=== PATIENT | female | born 2000 | race Hispanic/Latino ===

== ENCOUNTER 2020-12-05 10:27 | Emergency (ER) | payer SELFPAY ==
[2020-12-05] MEDS ORDERED: ONDANSETRON 4 MG/2 ML VIAL ONE (13:52)
[2020-12-05] MEDS ORDERED: NA CHLORIDE 0.9% 1,000 ML ONE (13:52)
[2020-12-05] MEDS ORDERED: FAMOTIDINE 20 MG/2 ML VIAL IV ONE (13:53)
[2020-12-05] MEDS ORDERED: KETOROLAC 30 MG/ML INJ ONE (13:56)
[2020-12-05 13:57] LABS: Urine Specific Gravity 1.025 (1.005-1.030)
[2020-12-05 13:58] LABS: Urine Blood NEGATIVE (NEG); Urine Glucose NEGATIVE (NEG); Urine Protein NEGATIVE (NEG); Urine Specific Gravity 1.025 (1.005-1.030); Urine pH 7.5 (5.0-7.0)
[2020-12-05 14:02] LABS: Absolute Lymphocytes (CBC) 2.2 K/uL (0.7-4.9); Basophils % 0.5 % (0-1.3); Hematocrit 40.3 % (36.0-45.0); Lymphocytes % 24.8 % (15.3-44.8); RBC Red Blood Cell Count 4.55 M/uL (3.86-4.86)
[2020-12-05 14:18] LABS: ALT/SGPT 22 U/L (12-78); AST/SGOT 16 U/L (15-37); Albumin 3.9 g/dL (3.4-5.0); Alkaline Phosphatase 70 U/L (45-117); BUN Blood Urea Nitrogen 6 mg/dL (7-18); Bicarbonate 26 mmol/L (21-32); Bilirubin Direct < 0.1 mg/dL (0-0.2); Bilirubin Total 0.3 mg/dL (0.2-1.0); Glucose Level 76 mg/dL (74-106); Lipase 75 U/L (73-393); Potassium 3.6 mmol/L (3.5-5.1); Protein, Total 8.1 g/dL (6.4-8.2); Sodium Level 138 mmol/L (136-145)
--- NOTE | 2020-12-05 15:50 | RAD REPORT ---
EXAM DESCRIPTION: CT - Abdomen Pelvis W Contrast - 12/05/2020 3:20 pm CLINICAL HISTORY: ABD PAIN COMPARISON: No comparisons TECHNIQUE: Biphasic, helical CT imaging of the abdomen and pelvis was performed following 100 ml non -ionic IV contrast. No oral contrast. All CT scans are performed using dose optimization technique as appropriate and may include automated exposure control or mA/KV adjustment according to patient size. FINDINGS: No suspicious findings in the lung bases. The liver, spleen, and pancreas show no suspicious findings. Gallbladder and biliary tree are also wi thout suspicious finding. Symmetric renal function is seen with no hydronephrosis or suspicious renal mass. No pyelonephritis o r acute parenchymal process. No bladder abnormalities. No adrenal abnormalities. Uterus and left ovar y show no suspicious findings. Right ovary contains an 18 millimeter involuting cyst. No dilated bowel loops or bowel wall thickening. Appendix is normal. No free air, free fluid or infla mmatory stranding. No hernia, mass or bulky lymphadenopathy. No suspicious bony findings. IMPRESSION: Contrast enhanced CT abdomen and pelvis showing no acute or emergent finding.
--- NOTE | 2020-12-05 17:14 | ER ---
Nurse's Notes [facility] Name: Ahsan Fitch Age: 20 yrs Sex: Female : 2000 Arrival Date: 12/05/2020 Time: 10:32 Bed 2 Private MD: Diagnosis: Diarrhea, unspecified Presentation: 12/05 11:09 Chief complaint: Patient states: for about 1-2 weeks has vomiting and stomach pains and iw is also having a lot of diarrhea and now there is blood in it , dark red, noticed it this morning. Coronavirus screen: diarrhea, vomiting. Client presents with at least one sign or symptom that may indicate coronavirus-19. Standard/surgical mask placed on the client. Provider contacted for isolation considerations. Ebola Screen: Patient negative for fever greater than or equal to 101.5 degrees Fahrenheit, and additional compatible Ebola Virus Disease symptoms Patient denies exposure to infectious person. Patient denies travel to an Ebola-affected area in the 21 days before illness onset. No symptoms or risks identified at this time. Initial Sepsis Screen: Does the patient meet any 2 criteria? No. Patient's initial sepsis screen is negative. Does the patient have a suspected source of infection? No. Patient's initial sepsis screen is negative. Risk Assessment: Do you want to hurt yourself or someone else? Patient reports no desire to harm self or others. Onset of symptoms was November 22, 2020. 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 - Social history:: Smoking status: Patient denies any tobacco usage or history of. - Family history:: not pertinent. Screenin:00 Abuse screen: Denies threats or abuse. Denies injuries from another. Nutritional jl7 screening: No deficits noted. Tuberculosis screening: No symptoms or risk factors identified. Fall Risk IV access (20 points). Total Pretty Fall Scale indicates No Risk (0-24 pts). Assessment: 13:00 General: Appears in no apparent distress. uncomfortable, Behavior is calm, cooperative, jl7 appropriate for age. Pain: Complains of pain in abdomen diffusely Pain does not radiate. Pain currently is 8 out of 10 on a pain scale. Quality of pain is described as burning, aching, Pain began 1.5 weeks ago Is continuous. Pain: Complains of pain in left mid back and right mid back Pain does not radiate. Pain currently is 8.5 out of 10 on a pain scale. Quality of pain is described as aching, Pain began 2.5 weeks ago Is continuous. Neuro: Level of Consciousness is awake, alert, obeys commands, Oriented to person, place, time, situation. Cardiovascular: Patient's skin is warm and dry. Respiratory: Airway is patent Respiratory effort is even, unlabored, Respiratory pattern is regular, symmetrical. GI: Abdomen is round non-distended, Abd is soft Abdomen is tender to palpation in right upper quadrant, left upper quadrant, right lower quadrant and left lower quadrant Reports diarrhea, bloody stool, nausea, vomiting. : Denies burning with urination. Derm: Skin is pink, warm \T\ dry. 16:48 Reassessment: ERD at bedside discussing results and POC. jl7 17:41 Reassessment: PT D/C HOME AMBULATORY, DX WITH DIARRHEA. GI: Bowel sounds present X 4 bp quads. Vital Signs: 11:09 BP 113 / 83; Pulse 90; Resp 16; Temp 98.5; Pulse Ox 100% on R/A; Weight 68.04 kg; iw Height 5 ft. (152.40 cm); Pain 8/10; 13:10 BP 136 / 98; Pulse 71; Resp 15; Pulse Ox 100% ; jl7 13:55 BP 114 / 67; Pulse 76; Resp 15; Pulse Ox 100% ; Pain 8/10; jl7 16:16 BP 92 / ???; Pulse 67; Resp 16; Temp 98.0(O); Pulse Ox 98% ; 5 17:41 BP 99 / 70; Pulse 66; Resp 16; Temp 98; Pulse Ox 98% ; bp 11:09 Body Mass Index 29.29 (68.04 kg, 152.40 cm) iw ED Course: 10:32 Patient arrived in ED. as 11:11 Triage completed. iw 11:11 Arm band placed on. iw 12:57 Moshe Andrews MD is Attending Physician. ma2 12:59 Curtis Joy, RN is Primary Nurse. [facility] 13:10 Patient has correct armband on for positive identification. Bed in low position. Call 5 light in reach. Warm blanket given. Pulse ox on. NIBP on. 13:10 Urine collected: clean catch specimen, clear. [facility] 13:50 Initial lab(s) drawn, by nv, sent to lab. Inserted saline lock: 20 gauge in left jl7 antecubital area, using aseptic technique. Blood collected. 15:20 CT Abd/Pelvis - IV Contrast Only In Process Unspecified. EDMS 17:42 No provider procedures requiring assistance completed. IV discontinued, intact, bp bleeding controlled, No redness/swelling at site. Pressure dressing applied. Administered Medications: 13:43 Drug: Zofran (Ondansetron) 4 mg Route: IVP; Site: left antecubital; 7 17:43 Follow up: Response: No adverse reaction bp 13:45 Drug: NS 0.9% 1000 ml Route: IV; Rate: 1 bolus; Site: left antecubital; [facility] 17:42 Follow up: IV Status: Completed infusion; IV Intake: 1000ml bp 13:45 Drug: Ketorolac 30 mg Route: IVP; Site: left antecubital; jl7 17:43 Follow up: Response: Pain is decreased bp 13:47 Drug: Pepcid 20 mg Route: IVP; Site: left antecubital; 7 17:42 Follow up: Response: No adverse reaction bp Intake: 17:42 IV: 1000ml; Total: 1000ml. bp Outcome: 17:13 Discharge ordered by . ma2 17:42 Discharged to home ambulatory. bp 17:42 Condition: stable 17:42 Discharge instructions given to patient, Instructed on discharge instructions, follow up and referral plans. medication usage, Demonstrated understanding of instructions, follow-up care, medications, Prescriptions given X 4. 17:43 Patient left the ED. bp Signatures: Dispatcher [employer] EDGeovanna Echols Irene, RN RN Nicole Gaines [facility] Curtis Joy RN RN [facility] Quinn Simon RN RN Alzahri, Mohammad, MD MD ma2
--- NOTE | 2020-12-05 17:14 | EDPHYS ---
Physician Documentation [facility] Name: Ahsan Fitch Age: 20 yrs Sex: Female : 2000 Arrival Date: 12/05/2020 Time: 10:32 Bed 2 Private MD: ED Physician Moshe Andrews HPI: 12/05 15:50 This 20 yrs old Female presents to ER via Ambulatory with complaints of ma2 Abdominal Pain, Bloody Stools, Nausea/Vomiting. 15:50 The patient presents to the emergency department with nausea, vomiting, diarrhea. ma2 Onset: The symptoms/episode began/occurred gradually, 2 week(s) ago. Associated signs and symptoms: Pertinent negatives: constipation, dysuria, fever, flatulence. Severity of symptoms: At their worst the symptoms were mild in the emergency department the symptoms are unchanged. The patient has not experienced similar symptoms in the past. 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 - Social history:: Smoking status: Patient denies any tobacco usage or history of. - Family history:: not pertinent. ROS: 15:50 Constitutional: Negative for fever, chills, and weight loss. ma2 15:50 All other systems are negative. Exam: 15:50 Constitutional: This is a well developed, well nourished patient who is awake, alert, ma2 and in no acute distress. Neck: Trachea midline, no thyromegaly or masses palpated, and no cervical lymphadenopathy. Supple, full range of motion without nuchal rigidity, or vertebral point tenderness. No Meningismus. Chest/axilla: Normal chest wall appearance and motion. Nontender with no deformity. No lesions are appreciated. Cardiovascular: Regular rate and rhythm with a normal S1 and S2. No gallops, murmurs, or rubs. Normal PMI, no JVD. No pulse deficits. Respiratory: Lungs have equal breath sounds bilaterally, clear to auscultation and percussion. No rales, rhonchi or wheezes noted. No increased work of breathing, no retractions or nasal flaring. Abdomen/GI: Soft, non-tender, with normal bowel sounds. No distension or tympany. No guarding or rebound. No evidence of tenderness throughout. Skin: Warm, dry with normal turgor. Normal color with no rashes, no lesions, and no evidence of cellulitis. MS/ Extremity: Pulses equal, no cyanosis. Neurovascular intact. Full, normal range of motion. Vital Signs: 11:09 BP 113 / 83; Pulse 90; Resp 16; Temp 98.5; Pulse Ox 100% on R/A; Weight 68.04 kg; iw Height 5 ft. (152.40 cm); Pain 8/10; 13:10 BP 136 / 98; Pulse 71; Resp 15; Pulse Ox 100% ; jl7 13:55 BP 114 / 67; Pulse 76; Resp 15; Pulse Ox 100% ; Pain 8/10; jl7 16:16 BP 92 / ???; Pulse 67; Resp 16; Temp 98.0(O); Pulse Ox 98% ; mh5 17:41 BP 99 / 70; Pulse 66; Resp 16; Temp 98; Pulse Ox 98% ; bp 11:09 Body Mass Index 29.29 (68.04 kg, 152.40 cm) iw MDM: 12:57 Patient medically screened. ma2 15:50 Differential diagnosis: pancreatitis, appendicitis, diverticulitis, viral ma2 gastroenteritis, gastroenteritis. 17:13 Data reviewed: vital signs, nurses notes. Counseling: I had a detailed discussion with ma2 the patient and/or guardian regarding: the historical points, exam findings, and any diagnostic results supporting the discharge/admit diagnosis, the presence of at least one elevated blood pressure reading (>120/80) during this emergency department visit, the need for outpatient follow up. Response to treatment: the patient's symptoms have markedly improved after treatment. 12/05 13:05 Order name: Urine Dipstick--Ancillary (enter results); Complete Time: 14:43 12/05 13:07 Order name: Urine --Ancillary (enter results) 12/05 13:30 Order name: Basic Metabolic Panel [facility] 12/05 13:30 Order name: CBC with Diff ok2 12/05 13:30 Order name: Hepatic Function ok2 12/05 13:30 Order name: Lipase ok2 12/05 13:31 Order name: Basic Metabolic Panel; Complete Time: 14:43 EDMS 12/05 13:31 Order name: CBC with Automated Diff; Complete Time: 14:43 EDMS 12/05 13:31 Order name: Liver (Hepatic) Function; Complete Time: 14:43 EDMS 12/05 13:31 Order name: Lipase; Complete Time: 14:43 EDMS 12/05 14:44 Order name: CT Abd/Pelvis - IV Contrast Only; Complete Time: 16:41 ok2 12/05 13:30 Order name: IV Saline Lock; Complete Time: 13:59 ma2 12/05 13:30 Order name: Labs collected and sent; Complete Time: 13:59 ma2 12/05 13:30 Order name: Urine Dipstick-Ancillary (obtain specimen); Complete Time: 13:59 ma2 Administered Medications: 13:43 Drug: Zofran (Ondansetron) 4 mg Route: IVP; Site: left antecubital; jl7 17:43 Follow up: Response: No adverse reaction bp 13:45 Drug: NS 0.9% 1000 ml Route: IV; Rate: 1 bolus; Site: left antecubital; jl7 17:42 Follow up: IV Status: Completed infusion; IV Intake: 1000ml bp 13:45 Drug: Ketorolac 30 mg Route: IVP; Site: left antecubital; jl7 17:43 Follow up: Response: Pain is decreased bp 13:47 Drug: Pepcid 20 mg Route: IVP; Site: left antecubital; jl7 17:42 Follow up: Response: No adverse reaction bp Disposition: 12/05/20 17:13 Discharged to Home. Impression: Diarrhea, unspecified. - Condition is Stable. - Discharge Instructions: Diarrhea, Adult. - Prescriptions for Zofran 4 mg Oral Tablet - take 1 tablet by ORAL route every 12 hours As needed; 20 tablet. Pepcid 20 mg Oral Tablet - take 1 tablet by ORAL route once daily for 10 days; 10 tablet. Levaquin 500 mg Oral Tablet - take 1 tablet by ORAL route once daily for 7 days; 7 tablet. Diclofenac Sodium 75 mg Oral Tablet Sustained Release - take 1 tablet by ORAL route 2 times per day; 30 tablet. - Medication Reconciliation Form, Thank You Letter, Antibiotic Education, Prescription Opioid Use form. - Follow up: Private Physician; When: Tomorrow; Reason: Continuance of care. Signatures: Dispatcher [employer] Jossy Rivers RN RN Curtis Cox RN RN jl7 Quinn Simon RN RN bp Alzahri, Mohammad, MD MD ma2 Corrections: (The following items were deleted from the chart) 17:43 17:13 12/05/2020 17:13 Discharged to Home. Impression: Diarrhea, unspecified. Condition bp is Stable. Prescriptions for Zofran 4 mg Oral Tablet - take 1 tablet by ORAL route every 12 hours As needed; 20 tablet, Pepcid 20 mg Oral Tablet - take 1 tablet by ORAL route once daily for 10 days; 10 tablet. and Forms are Medication Reconciliation Form, Thank You Letter, Antibiotic Education, Prescription Opioid Use. Follow up: Private Physician; When: Tomorrow; Reason: Continuance of care. ma2
[2020-12-05 18:18] VITALS: O2SAT 98
[2020-12-05 18:19] VITALS: BP 99/70; TEMP 98
== END 2020-12-05 17:43 | disposition home or self-care (01) ==
LOC: ER 10:27
DX: K92.1 Melena (principal); R19.7 Diarrhea, unspecified; R10.9 Unspecified abdominal pain; R11.2 Nausea with vomiting, unspecified
CPT/HCPCS: 36415; 74177; 80048; 80076; 81003; 81025; 83690; 85025; 96361; 96374; 96375; 99284; J2405; J7030; Q9967

== ENCOUNTER 2021-09-06 18:51 | Emergency (ER) | payer SELFPAY ==
--- NOTE | 2021-09-06 20:10 | EDPHYS ---
Physician Documentation [facility] Name: Ahsan Fitch Age: 20 yrs Sex: Female : 2000 Arrival Date: 09/06/2021 Time: 18:52 Bed 11 Private MD: ED Physician Rad Jonas HPI: 09/06 19:35 This 20 yrs old Female presents to ER via Ambulatory with complaints of Rash. cp 19:35 The patient's rash thought to be caused by an unknown cause. cp 19:35 The rash is located on the body diffusely. cp 19:35 The rash can be described as erythematous. Onset: The symptoms/episode began/occurred cp last week. Associated signs and symptoms: Pertinent positives: itching, Pertinent negatives: difficulty breathing, fever, swelling of lips, swelling of throat, swelling of tongue. Severity of symptoms: in the emergency department the symptoms are worse. 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 - Social history:: Smoking status: Patient denies any tobacco usage or history of. Patient/guardian denies using alcohol. ROS: 19:40 Skin: Positive for rash. cp 19:40 Constitutional: Negative for fever. cp 19:40 Respiratory: Negative for cough, shortness of breath. 19:40 All other systems are negative. Exam: 19:45 Constitutional: The patient appears in no acute distress, alert, awake, non-toxic, well cp developed, well nourished. 19:45 Head/Face: Normocephalic, atraumatic. cp 19:45 Cardiovascular: Rate: normal. 19:45 Respiratory: the patient does not display signs of respiratory distress, Respirations: normal, no use of accessory muscles, no retractions. 19:45 Skin: cellulitis, is not appreciated, rash can be described as erythematous, excoriated, areas of superficial erosion of skin, and is diffusely located. Vital Signs: 18:57 BP 109 / 88; Pulse 77; Resp 18; Temp 97.5(TE); Pulse Ox 100% on R/A; Weight 63.5 kg; ld1 Height 5 ft. 0 in. (152.40 cm); Pain 0/10; 18:57 Body Mass Index 27.34 (63.50 kg, 152.40 cm) ld1 MDM: 19:31 Patient medically screened. cp 20:10 Data reviewed: vital signs, nurses notes, and as a result, I will discharge patient. cp 20:10 Counseling: I had a detailed discussion with the patient and/or guardian regarding: the cp historical points, exam findings, and any diagnostic results supporting the discharge/admit diagnosis, to return to the emergency department if symptoms worsen or persist or if there are any questions or concerns that arise at home. ED course: Patient denies and drainage from rash, denies pain, denies initial appearance of rash appearing as vesicles and/or pustules. Patient reports recently getting new pet dog. Will treat for tinea infection and recommend f/u if no resolution. Administered Medications: No medications were administered Disposition: 20:20 Chart complete. cp Disposition Summary: 09/06/21 20:10 Discharge Ordered Location: Home cp Problem: new cp Symptoms: have improved cp Condition: Stable cp Diagnosis - Tinea corporis cp Followup: cp - With: Private Physician - When: 1 week - Reason: rash continues Discharge Instructions: - Discharge Summary Sheet cp - Body Ringworm cp Forms: - Medication Reconciliation Form cp - Thank You Letter cp - Antibiotic Education cp - Prescription Opioid Use cp Prescriptions: - Clotrimazole 1 % Topical Cream - Apply to affected area 1 application by TOPICAL route every 12 hours for 8-10 cp days apply to areas of rash as directed twice daily; 60 gram; Refills: 0, Product Selection Permitted - Fluconazole 200 mg Oral Tablet - take 1 tablet by ORAL route every other day; 3 tablet; Refills: 0, Product cp Selection Permitted Addendum: 09/11/2021 08:24 Co-signature as Attending Physician, Rad Jonas MD I agree with the assessment and c tellez plan of care. Signatures: Rad Jonas MD MD cha Page, Corey PA PA cp Armida yBrnes RN RN ld1 Corrections: (The following items were deleted from the chart) 09/06 19:00 18:59 PMHx: Unable to Obtain; ld1 ld1 20:12 20:10 Sofiya kim cp cp
--- NOTE | 2021-09-06 20:10 | ER ---
Nurse's Notes [facility] Name: Ahsan Fitch Age: 20 yrs Sex: Female : 2000 Arrival Date: 09/06/2021 Time: 18:52 Bed 11 Private MD: Diagnosis: Tinea corporis Presentation: 09/06 18:57 Chief complaint: Patient states: I noticed a rash developing last Friday, it is itchy ld1 and all over my body. My son has now developed the rash as well. Coronavirus screen: At this time, the client does not indicate any symptoms associated with coronavirus-19. Ebola Screen: No symptoms or risks identified at this time. Initial Sepsis Screen: Does the patient meet any 2 criteria? No. Patient's initial sepsis screen is negative. Does the patient have a suspected source of infection? No. Patient's initial sepsis screen is negative. Risk Assessment: Do you want to hurt yourself or someone else? Patient reports no desire to harm self or others. Onset of symptoms was September 06, 2021. 18:57 Method Of Arrival: Ambulatory ld1 18:57 Acuity: CLAIR 4 ld1 Triage Assessment: 18:59 General: Appears in no apparent distress. comfortable, Behavior is calm, cooperative, ld1 appropriate for age. Pain: Denies pain. Neuro: Level of Consciousness is awake, alert, obeys commands, Oriented to person, place, time, situation, Appropriate for age. Cardiovascular: Capillary refill < 3 seconds Patient's skin is warm and dry. Respiratory: Airway is patent Respiratory effort is even, unlabored, Respiratory pattern is regular, symmetrical. GI: Abdomen is flat, non-distended. Derm: Rash noted that is itchy, on abdomen, right arm, left arm, right leg, left leg and neck. 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 - Social history:: Smoking status: Patient denies any tobacco usage or history of. Patient/guardian denies using alcohol. Screenin:13 Abuse screen: Denies threats or abuse. Denies injuries from another. Nutritional mr2 screening: No deficits noted. Tuberculosis screening: No symptoms or risk factors identified. Fall Risk None identified. Assessment: 20:24 General: Appears in no apparent distress. comfortable. Pain: Denies pain. Derm: Reports mr2 itching, tingling, since last week. Vital Signs: 18:57 BP 109 / 88; Pulse 77; Resp 18; Temp 97.5(TE); Pulse Ox 100% on R/A; Weight 63.5 kg; ld1 Height 5 ft. 0 in. (152.40 cm); Pain 0/10; 18:57 Body Mass Index 27.34 (63.50 kg, 152.40 cm) ld1 ED Course: 18:52 Patient arrived in ED. am2 18:59 Triage completed. ld1 18:59 Arm band placed on left wrist. ld1 19:29 Rad Youngblood PA is PHCP. cp 19:29 Rad Jonas MD is Attending Physician. cp 20:12 Manpreet Umana, RN is Primary Nurse. mr2 20:13 Patient has correct armband on for positive identification. Bed in low position. Call mr2 light in reach. Side rails up X2. 20:13 No provider procedures requiring assistance completed. Patient did not have IV access mr2 during this emergency room visit. Administered Medications: No medications were administered Outcome: 20:10 Discharge ordered by . cp 20:13 Discharged to home ambulatory. mr2 20:13 Condition: stable 20:13 Discharge instructions given to patient. 20:25 Patient left the ED. mr2 Signatures: Rad Youngblood PA PA cp Moreno, Amanda am2 Armida Byrnes RN RN ld1 Manpreet Umana RN RN mr2 Corrections: (The following items were deleted from the chart) 19:00 18:59 PMHx: Unable to Obtain; ld1 ld1
[2021-09-06 20:31] VITALS: BP 109/88; TEMP 97.5; O2SAT 100
== END 2021-09-06 20:25 | disposition home or self-care (01) ==
LOC: ER 18:51
DX: B35.4 Tinea corporis (principal)
CPT/HCPCS: 99281

== ENCOUNTER 2021-09-30 13:56 | Emergency (ER) | payer SELFPAY ==
[2021-09-30 15:55] LABS: SARS-COV-2 RT PCR NEGATIVE (NEGATIVE)
--- NOTE | 2021-09-30 16:02 | EDPHYS ---
Physician Documentation [facility] Name: Ahsan Fitch Age: 20 yrs Sex: Female : 2000 Arrival Date: 09/30/2021 Time: 14:04 Bed Treatment Private MD: ED Physician Shanice Wagner HPI: 09/30 18:29 This 20 yrs old Female presents to ER via Ambulatory with complaints of Cough, kb Sore Throat, Chest Pain. 18:29 The patient or guardian reports cough, that is intermittent, described as mild. Onset: kb The symptoms/episode began/occurred last night. Severity of symptoms: At their worst the symptoms were moderate, in the emergency department the symptoms are unchanged. Modifying factors: The symptoms are alleviated by nothing, the symptoms are aggravated by nothing. Associated signs and symptoms: Pertinent positives: rhinorrhea, sore throat, Pertinent negatives: chest pain, diarrhea, ear ache, fever, nausea, vomiting. The patient has not experienced similar symptoms in the past. The patient has not recently seen a physician. 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 - Social history:: Smoking status: Reported history of juuling and/or vaping. Patient/guardian denies using alcohol. ROS: 18:28 Constitutional: Negative for fever, chills, and weight loss. kb 18:28 ENT: Positive for sinus congestion, sore throat. 18:28 Respiratory: Positive for cough, Negative for dyspnea on exertion, hemoptysis, orthopnea, pleurisy, shortness of breath, sputum production, wheezing. 18:28 All other systems are negative. Exam: 18:28 Constitutional: This is a well developed, well nourished patient who is awake, alert, kb and in no acute distress. Head/Face: Normocephalic, atraumatic. Cardiovascular: Regular rate and rhythm with a normal S1 and S2. No gallops, murmurs, or rubs. No pulse deficits. Respiratory: Respirations even and unlabored. No increased work of breathing, no retractions or nasal flaring. Skin: Warm, dry with normal turgor. Normal color. MS/ Extremity: Pulses equal, no cyanosis. Neurovascular intact. Full, normal range of motion. Neuro: Awake and alert, GCS 15, oriented to person, place, time, and situation. Moves all extremities. Normal gait. Psych: Awake, alert, with orientation to person, place and time. Behavior, mood, and affect are within normal limits. 18:28 ENT: Posterior pharynx: Airway: normal, no evidence of obstruction, Tonsils: bilaterally enlarged, Uvula: normal, midline, swelling, that is moderate. Vital Signs: 14:30 BP 129 / 80; Pulse 96; Resp 18; Temp 98.1(O); Pulse Ox 100% on R/A; Weight 68.04 kg; ld1 Height 5 ft. 0 in. (152.40 cm); Pain 0/10; 14:30 Body Mass Index 29.29 (68.04 kg, 152.40 cm) ld1 MDM: 15:53 Patient medically screened. kb 18:28 Data reviewed: vital signs, nurses notes. Data interpreted: Pulse oximetry: on room air kb is 100 %. Interpretation: normal. Counseling: I had a detailed discussion with the patient and/or guardian regarding: the historical points, exam findings, and any diagnostic results supporting the discharge/admit diagnosis, lab results, the need for outpatient follow up, a family practitioner, to return to the emergency department if symptoms worsen or persist or if there are any questions or concerns that arise at home. 09/30 14:34 Order name: Strep; Complete Time: 15:00 ld1 09/30 14:34 Order name: COVID-19/FLU A+B (Document "Date of Onset" if Symptomatic); Complete Time: ld1 15:59 09/30 14:53 Order name: Throat Culture EDMS Administered Medications: 16:44 Drug: Decadron (dexamethasone) 6 mg Route: PO; iw 17:00 Follow up: Response: No adverse reaction iw 16:44 Drug: GI Cocktail without - (Maalox Suspension 30 ml, Lidocaine Liquid 2 % 15 iw ml) Route: PO; 17:00 Follow up: Response: No adverse reaction iw Disposition: 10/01 09:25 Co-signature as Attending Physician, Shanice Wagner MD I agree with the assessment and sp3 plan of care. Disposition Summary: 09/30/21 16:01 Discharge Ordered Location: Home kb Condition: Stable kb Diagnosis - Acute tonsillitis, unspecified kb Followup: kb - With: Emergency Department - When: As needed - Reason: Worsening of condition Followup: kb - With: Private Physician - When: 2 - 3 days - Reason: Recheck today's complaints, Continuance of care, Re-evaluation by your physician Discharge Instructions: - Discharge Summary Sheet kb - Tonsillitis, [id number] kb Forms: - Medication Reconciliation Form kb - Thank You Letter kb - Antibiotic Education kb - Prescription Opioid Use kb - Work release form iw Prescriptions: - Amoxicillin 875 mg Oral Tablet - take 1 tablet by ORAL route every 12 hours for 10 days; 20 tablet; Refills: 0, kb Product Selection Permitted Signatures: Dispatcher [employer] EDAmanda Bundy, EDA NASCIMENTO-Jossy Orona RN RN Armida Byrnes RN RN ld1 Shanice Wagner MD MD sp3
--- NOTE | 2021-09-30 16:02 | ER ---
Nurse's Notes [facility] Name: Ahsan Fitch Age: 20 yrs Sex: Female : 2000 Arrival Date: 09/30/2021 Time: 14:04 Bed Treatment Private MD: Diagnosis: Acute tonsillitis, unspecified Presentation: 09/30 14:30 Chief complaint: Patient states: woke up this morning with cough, congestion and sore ld1 throat. Coronavirus screen: Client presents with at least one sign or symptom that may indicate coronavirus-19. Standard/surgical mask placed on the client. Ebola Screen: No symptoms or risks identified at this time. Initial Sepsis Screen: Does the patient meet any 2 criteria? No. Patient's initial sepsis screen is negative. Does the patient have a suspected source of infection? No. Patient's initial sepsis screen is negative. Risk Assessment: Do you want to hurt yourself or someone else? Patient reports no desire to harm self or others. Onset of symptoms was September 30, 2021. 14:30 Method Of Arrival: Ambulatory ld1 14:30 Method Of Arrival: Ambulatory ld1 14:30 Acuity: CLAIR 4 ld1 Triage Assessment: 14:32 General: Appears in no apparent distress. comfortable, Behavior is calm, cooperative, ld1 appropriate for age. Pain: Denies pain. EENT: Throat is pink Reports difficulty swallowing nasal congestion. Neuro: Level of Consciousness is awake, alert, obeys commands, Oriented to person, place, time, situation. Cardiovascular: Capillary refill < 3 seconds Patient's skin is warm and dry. Respiratory: Airway is patent Respiratory effort is even, unlabored, Respiratory pattern is regular, symmetrical. GI: Abdomen is flat, non-distended. : No signs and/or symptoms were reported regarding the genitourinary system. Derm: No signs and/or symptoms reported regarding the dermatologic system. Musculoskeletal: No signs and/or symptoms reported regarding the musculoskeletal system. 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 - Social history:: Smoking status: Reported history of juuling and/or vaping. Patient/guardian denies using alcohol. Vital Signs: 14:30 BP 129 / 80; Pulse 96; Resp 18; Temp 98.1(O); Pulse Ox 100% on R/A; Weight 68.04 kg; ld1 Height 5 ft. 0 in. (152.40 cm); Pain 0/10; 14:30 Body Mass Index 29.29 (68.04 kg, 152.40 cm) ld1 ED Course: 14:04 Patient arrived in ED. as 14:31 Triage completed. ld1 14:32 Arm band placed on right wrist. ld1 14:37 COVID-19/FLU A+B (Document "Date of Onset" if Symptomatic) Sent. ld1 14:37 Strep Sent. ld1 15:00 Amanda Crawford FNP-C is [facility]. kb 15:00 Shanice Wagner MD is Attending Physician. kb 16:28 Jossy Jackson, RN is Primary Nurse. iw Administered Medications: 16:44 Drug: Decadron (dexamethasone) 6 mg Route: PO; iw 17:00 Follow up: Response: No adverse reaction iw 16:44 Drug: GI Cocktail without - (Maalox Suspension 30 ml, Lidocaine Liquid 2 % 15 iw ml) Route: PO; 17:00 Follow up: Response: No adverse reaction iw Outcome: 16:01 Discharge ordered by . kb 16:46 Patient left the ED. iw Signatures: Amanda Crawford FNP-C FNP-Geovanna Rodas as Jossy Jackson, RN RN iw Armida Byrnes RN RN ld1
[2021-09-30] MEDS ORDERED: MAGNES/ALUMIN/SIMET 30ML UCUP ONE (16:37)
[2021-09-30] MEDS ORDERED: dexAMETHasone 4 MG/ML VIAL ONE (16:38)
[2021-09-30] MEDS ORDERED: LIDOCAINE VISCOUS 2% SOLN 15 ML UDC ONE (16:38)
[2021-09-30 16:54] VITALS: BP 129/80; TEMP 98.1; O2SAT 100
== END 2021-09-30 16:46 | disposition home or self-care (01) ==
LOC: ER 13:56
DX: J03.90 Acute tonsillitis, unspecified (principal); J45.909 Unspecified asthma, uncomplicated; Z20.822 Contact with and (suspected) exposure to COVID-19
CPT/HCPCS: 0240U; 87070; 87081; 99283; J1100

== ENCOUNTER 2021-10-28 10:35 | Emergency (ER) | payer OTHER, SELFPAY ==
--- OUTSIDE RECORDS SUMMARY | 2021-10-28 10:37 | XMS REPORT | Continuity of Care Document ---
:2000 Author Organization [facility] t Address [address] [place] [address] Care Team Providers Name Role Phone Juju TOLEDO, C Primary Care Physician Juju TOLEDO, C Attending Clinician Payers Payer Name Policy Type Policy Number Effective Date Expiration Date S ource Advance Directives Directive Decision Effective Termination Comments Source Date Date Healthcare Agents on N/A [facility] FileNameRelationshipHealthcare [facility] Agent Medical RelationshipCommunicationRaymond Branch Mal[facility]lenbeigh hospitalOtherHealth Care [phone] (Mobile) Problems Condition Condition Condition Status Onset Resolution Last Treating Co mments Source Name Details Category Date Date Treatment Clinician Date Supervisio Supervisio Disease Active 2020-11 U nivers n of n of 2-23 [place] [facility] Multiparit Multiparit Disease Active 2020-11 U nivers y y 2-23 ity of 00:00: [place] [address] [facility] Over Over Disease Active 2020-11 Univers weight weight 2-23 ity of 00:00: [place] [address] [facility] History of History of Disease Active 2020-11 Overview : Univers 2-23 Formattin ity of section section 00:00: g of this [place] 00 note Medical might be Branch different from the original. Due to abruption at 40 weeks per patient History of History of Disease Active 2020-11 U nivers placenta placenta 2-23 [place] 00 [facility] Nausea/vom Nausea/vom Disease Active 2020-11 U nivers iting in iting [place] 2-23 [place] of [place] [facility] Allergies, Adverse Reactions, Alerts This patient has no known allergies or adverse reactions. Social History Social Habit Start Date Stop Date Quantity Comments Source ASSERTION 2021-09-30 [facility] 00:00:00 [facility] Exposure to Not sure [facility] SARS-CoV-[address] [facility] (event) [place] Tobacco use and 2021-10-25 2021-10-25 Never used Universit y of exposure 00:00:00 00:00:00 [facility] Alcohol intake 2021-10-25 2021-10-25 Ex-drinker [facility] 00:00:00 00:00:00 (finding) [facility] History of 2021-10-23 Smoker University of tobacco use 00:00:00 [facility] Sex Assigned At [birth year] Universit y of 00:00:00 00:00:00 [facility] Smoking Status Start Date Stop Date Source Former smoker 2021-10-25 00:00:00 2021-10-25 00:00:00 Universi ty [facility] Medications Ordered Filled Start Stop Current Ordering Indication Dosage Frequency Signature Comments Components Source Medication Medication Date Date Medication? Clinician (SIG) Name Name proMETHazin 2020-11 Yes [id number] 25mg Take 1 Univers e 25 mg 2-23 tablet by ity of tablet 00:00: mouth [place] 00 every 6 Medical (six) Branch hours as needed for Nausea and Vomiting (N/V). proMETHazin 2020-11 Yes [id number] 25mg Take 1 Univers e 25 mg 2-23 tablet by ity of tablet 00:00: mouth [place] 00 every 6 Medical (six) Branch hours as needed for Nausea and Vomiting (N/V). Immunizations Ordered Filled Immunization Date Status Comments Sourc e Immunization Name Name Influenza Virus 2021-10-25 Completed Universit y of Vaccine Quad [facility], 00:00:00 [facility] dical Preserv and ABX Branch Free 6 MO-64 YRS Influenza Virus 2021-10-25 Completed Universit y of Vaccine Quad IM, 00:00:00 [facility] dical Preserv and ABX Branch Free 6 MO-64 YRS Vital Signs Vital Name Observation Time Observation Value Comments Source Systolic blood 2021-10-25 19:54:00 114 mm[Hg] Univer sity of pressure [facility] Diastolic blood 2021-10-25 19:54:00 76 mm[Hg] Unive rsity of pressure [facility] Heart rate 2021-10-25 19:54:00 95 /min [facility] Body temperature 2021-10-25 19:54:00 37.11 Denise [facility] Respiratory rate 2021-10-25 19:54:00 16 /min [facility] Body height 2021-10-25 19:54:00 149.9 cm [facility] Body weight 2021-10-25 19:54:00 62.869 kg [facility] BMI 2021-10-25 19:54:00 27.99 kg/m2 [facility] Procedures Procedure Date / Time Performed Performing Clinician Sour e FLU VACC ([id number]), 2021-10-25 20:36:54 [facility] .5ML, IM, Medical Bran ch QUAD (FLUCELVAX) POCT TEST 2021-10-25 00:00:00 Marylu Matute Uni [facility] POCT URINALYSIS W/O 2021-10-25 00:00:00 Marylu Matute [facility] SPECIFIC [facility] Encounters Start End Encounter Admission Attending Care Care Encounter Source Date/Time Date/Time Type Type Clinicians Facility Department ID 2021-10-25 2021-10-25 Initial ASMITA Matute [id number] Univers 13:30:00 14:55:22 Marylu Mendoza ICU MANAGER [id number] ity of Visit REGIONAL [id number] Jovanny as MATERNAL [id number] Med ical & CHILD [address] [place] [address] 2021-10-25 2021-10-25 Telephone ASMITA Matute [id number] Univers 00:00:00 00:00:00 Marylu Mendoza ICU MANAGER [id number] ity of [facility] [id number] Jovanny as MATERNAL [id number] Med ical & CHILD [address] [place] [address] Results Test Description Test Time Test Comments Results Result Comments Source POCT TEST 2021-10-25 19:47:00 Test Item Value Reference Range Interpretation Comme nts POCT PREG (test code = 1605) Positive On board controls acceptable with C Line (test code = 3574) Yes POCT PREG LOT # (test code = 3575) POCT PREG TEST DATE (test code = 3576) [facility] SPECIFIC [id number] 19:46:00 Test Item Value Reference Range Interpretation Comments POCT PH U (test code = 3254) 8 mg/dl 5-8 POCT U LEUK EST (test code = 1+ Negative - Negative 3263) POCT U NIT (test code = 3262) negative Negative - Negative POCT U PROT (test code = 3259) trace Negative - Negative POCT U GLU (test code = 3256) normal Negative - Negative POCT U KETONE (test code = 3258) negative Negative - Negative POCT U BLD (test code = 3257) trace Negative - Negative [facility]
[2021-10-28 11:41] LABS: Absolute Lymphocytes (CBC) 1.9 K/uL (0.7-4.9); Hematocrit 35.7 % (36.0-45.0); Lymphocytes % 23.9 % (15.3-44.8); MPV 7.3 fL (7.6-11.3); RBC Red Blood Cell Count 4.06 M/uL (3.86-4.86)
[2021-10-28 12:01] LABS: BUN Blood Urea Nitrogen 7 mg/dL (7-18); Bicarbonate 20 mmol/L (21-32); Glucose Level 89 mg/dL (74-106); HCG, Quantitative 61 mIU/mL (1-3); Potassium 3.2 mmol/L (3.5-5.1); Sodium Level 140 mmol/L (136-145)
--- NOTE | 2021-10-28 12:34 | RAD REPORT ---
EXAM DESCRIPTION: US - Transvaginal OB - 10/28/2021 12:24 pm CLINICAL HISTORY: Abd cramping, ;Vaginal bleeding COMPARISON: No comparisons FINDINGS: The uterus is normal sized. The endometrium appears thickened to about 1 cm throughout without an IUP evident. The maternal adnexa and ovaries are within normal limits. Normal Doppler blood flow was demonstrated to both ovaries. No pelvic ascites. IMPRESSION: Thickened endometrial stripe is noted without IUP visualized. This can still be a normal finding in the setting of a positive HCG level. Recommend close interval follow-up serial HCG levels and follow-up pelvic sonogram in 7-10 days.
--- NOTE | 2021-10-28 13:24 | EDPHYS ---
Physician Documentation [facility] Name: Ahsan Fitch Age: 20 yrs Sex: Female : 2000 Arrival Date: 10/28/2021 Time: 10:42 Bed Waiting Private MD: ED Physician Moshe Andrews HPI: 10/28 16:40 This 20 yrs old Female presents to ER via EMS with complaints of 6 Wks Preg kb Vag Bleeding. 16:40 The patient presents to the emergency department with abdominal pain, described as kb crampy, vaginal bleeding, that is light, that is moderate. The estimated gestational age is 6 weeks. course: care: at a clinic, Leakage of Fluid: none appreciated, Ultrasound: the patient has not had an ultrasound, Risk/complications: no obvious risks or complications are appreciated. Previous pregnancies: in previous pregnancies patient has had. Associated signs and symptoms: Pertinent positives: abdominal pain, vaginal bleeding, Pertinent negatives: vaginal discharge. The patient has not experienced similar symptoms in the past. The patient has been recently seen by a physician:. Pt reports spotting since last week, went to OB and was told to come to the ER if bleeding increased. States she started having mild to moderate bleeding today with abd cramping. . 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 - Social history:: Smoking status: Patient denies any tobacco usage or history of. ROS: 16:38 Constitutional: Negative for fever, chills, and weight loss. kb 16:38 Abdomen/GI: Positive for abdominal cramps. 16:38 : Positive for vaginal bleeding. 16:38 All other systems are negative. Exam: 16:38 Constitutional: This is a well developed, well nourished patient who is awake, alert, kb and in no acute distress. Head/Face: Normocephalic, atraumatic. ENT: Moist Mucous membranes Cardiovascular: Regular rate and rhythm with a normal S1 and S2. No gallops, murmurs, or rubs. No pulse deficits. Respiratory: Respirations even and unlabored. No increased work of breathing. Talking in full sentences Abdomen/GI: Soft, non-tender. No distention Skin: Warm, dry with normal turgor. Normal color. MS/ Extremity: Pulses equal, no cyanosis. Neurovascular intact. Full, normal range of motion. Neuro: Awake and alert, GCS 15, oriented to person, place, time, and situation. Moves all extremities. Normal gait. Psych: Awake, alert, with orientation to person, place and time. Behavior, mood, and affect are within normal limits. Vital Signs: 10:57 BP 154 / 86; Pulse 84; Resp 17; Temp 98.0; Pulse Ox 100% ; Weight 64.86 kg; Pain 7/10; ll1 13:32 BP 130 / 80; Pulse 86; Resp 16; ll1 MDM: 11:00 Patient medically screened. kb 16:37 Data reviewed: vital signs, nurses notes. Data interpreted: Pulse oximetry: on room air kb is 100 %. Interpretation: normal. Counseling: I had a detailed discussion with the patient and/or guardian regarding: the historical points, exam findings, and any diagnostic results supporting the discharge/admit diagnosis, lab results, radiology results, the need for outpatient follow up, an OB/Gyne specialist, to return to the emergency department if symptoms worsen or persist or if there are any questions or concerns that arise at home. ED course: Discussed all diagnostics with pt and gave results. Educated to call OB tomorrow for follow up and that she needs a repeat HCG in 48 hours. . 10/28 10:43 Order name: Abo/rh Typing; Complete Time: 12: ma2 10/28 10:43 Order name: Basic Metabolic Panel; Complete Time: 12:11 ma2 10/28 10:43 Order name: CBC with Diff; Complete Time: 11:47 ma2 10/28 10:43 Order name: Quantitative Hcg; Complete Time: 12: ma2 10/28 11:00 Order name: US Transvaginal Ob; Complete Time: 12:35 kb 10/28 10:43 Order name: IV Saline Lock; Complete Time: 10:53 ma2 10/28 10:43 Order name: Labs collected and sent; Complete Time: 10:53 ma2 10/28 10:43 Order name: NPO; Complete Time: 11:00 ma2 Administered Medications: 13:31 Drug: Potassium Chloride 40 mEq Route: PO; ll1 19:05 Follow up: Response: No adverse reaction ll1 Disposition: 18:58 I agree with the assessment and plan of care. ma2 Disposition Summary: 10/28/21 13:23 Discharge Ordered Location: Home kb Condition: Stable kb Diagnosis - Threatened kb Followup: kb - With: Emergency Department - When: As needed - Reason: Worsening of condition Followup: kb - With: Private Physician - When: 2 - 3 days - Reason: Recheck today's complaints, Continuance of care, Re-evaluation by your physician Discharge Instructions: - Discharge Summary Sheet kb - Threatened Miscarriage, [id number] kb - Vaginal Bleeding During , First Trimester, [id number] kb Forms: - Medication Reconciliation Form kb - Thank You Letter kb - Antibiotic Education kb - Prescription Opioid Use kb Signatures: Dispatcher [employer] EDMS Amanda Crawford, TOUR SALES REPRESENTATIVE-C TOUR SALES REPRESENTATIVE-Ckb Moshe Andrews MD MD ma2 Antione Rodgers RN RN ll1 Corrections: (The following items were deleted from the chart) 13:31 10:43 Urine Dipstick-Ancillary ordered. ma2 ll1
--- NOTE | 2021-10-28 13:24 | ER ---
Nurse's Notes [facility] Name: Ahsan Fitch Age: 20 yrs Sex: Female : 2000 Arrival Date: 10/28/2021 Time: 10:42 Bed Waiting Private MD: Diagnosis: Threatened Presentation: 10/28 10:57 Chief complaint: Patient states: 6 weeks . Spotting since last week. Bleeding ll1 has worsened today. Coronavirus screen: Vaccine status: Patient reports receiving the 2nd dose of the covid vaccine. Client denies travel out of the [place] in the last 14 days. At this time, the client does not indicate any symptoms associated with coronavirus-19. Ebola Screen: Patient denies travel to an Ebola-affected area in the 21 days before illness onset. Initial Sepsis Screen: Does the patient meet any 2 criteria? No. Patient's initial sepsis screen is negative. Does the patient have a suspected source of infection? No. Patient's initial sepsis screen is negative. Risk Assessment: Do you want to hurt yourself or someone else? Patient reports no desire to harm self or others. Onset of symptoms was October 21, 2021. 10:57 Method Of Arrival: EMS ll1 10:57 Acuity: CLAIR 3 ll1 Triage Assessment: 11:00 General: Appears in no apparent distress. Behavior is calm, cooperative, appropriate ll1 for age. Pain: Complains of pain in abdomen Quality of pain is described as aching, crampy. Neuro: No deficits noted. Cardiovascular: No deficits noted. Respiratory: No deficits noted. GI: Abdomen is round. GI: Reports lower abdominal pain, upper abdominal pain, cramping, diarrhea, nausea, vomiting. : Reports vaginal bleeding that is. [employer]: 16:40 2, 0, Living 1, LMP 09/2021 kb 19:06 Verified ll1 Historical: - Allergies: 10:59 No Known Allergies; ll1 - PMHx: 10:59 Asthma; ll1 - PSHx: 10:59 section; ll1 - Immunization history:: Client reports receiving the 2nd dose of the Covid vaccine, Flu vaccine is up to date. - Social history:: Smoking status: Patient denies any tobacco usage or history of. Screenin:00 Abuse screen: Denies threats or abuse. Nutritional screening: No deficits noted. ll1 Tuberculosis screening: No symptoms or risk factors identified. Fall Risk IV access (20 points). Total Pretty Fall Scale indicates No Risk (0-24 pts). Assessment: 12:00 Reassessment: No changes from previously documented assessment. Patient and/or family ll1 updated on plan of care and expected duration. Pain level reassessed. Patient is alert, oriented x 3, equal unlabored respirations, skin warm/dry/pink. 13:00 Reassessment: No changes from previously documented assessment. Patient and/or family ll1 updated on plan of care and expected duration. Pain level reassessed. Patient is alert, oriented x 3, equal unlabored respirations, skin warm/dry/pink. 13:30 Reassessment: No changes from previously documented assessment. Patient and/or family ll1 updated on plan of care and expected duration. Pain level reassessed. Patient is alert, oriented x 3, equal unlabored respirations, skin warm/dry/pink. Vital Signs: 10:57 BP 154 / 86; Pulse 84; Resp 17; Temp 98.0; Pulse Ox 100% ; Weight 64.86 kg; Pain 7/10; ll1 13:32 BP 130 / 80; Pulse 86; Resp 16; ll1 ED Course: 10:42 Patient arrived in ED. ds1 10:53 Abo/rh Typing Sent. mh5 10:54 Basic Metabolic Panel Sent. 5 10:54 CBC with Diff Sent. 5 10:54 Quantitative Hcg Sent. 5 10:59 Triage completed. ll1 10:59 Amanda Crawford FNP-C [facility]. kb 10:59 Moshe Andrews MD is Attending Physician. kb 10:59 Arm band placed on. ll1 11:10 Initial lab(s) drawn, by ks, sent to lab. T\T\S collected, blood band applied to patient. mh5 Maintain EMS IV. Dressing intact. Good blood return noted. Site clean \T\ dry. 11:11 Patient has correct armband on for positive identification. 5 12:00 No provider procedures requiring assistance completed. ll1 12:24 Transvaginal Ob In Process Unspecified. EDMS 13:35 IV discontinued, intact, bleeding controlled, No redness/swelling at site. Pressure ll1 dressing applied. Administered Medications: 13:31 Drug: Potassium Chloride 40 mEq Route: PO; ll1 19:05 Follow up: Response: No adverse reaction ll1 Outcome: 13:23 Discharge ordered by . luis 13:34 Patient left the ED. ll1 13:34 Discharged to home ambulatory. ll1 13:34 Condition: stable 13:34 Discharge instructions given to patient, family, Instructed on discharge instructions, follow up and referral plans. Demonstrated understanding of instructions, follow-up care. Signatures: Dispatcher [employer] EDAmanda Bundy, LEAD TECHNOLOGIST IN CYTOGENETICS-C LEAD TECHNOLOGIST IN CYTOGENETICS-Dayanara Dumont Nicole Veliz 5 Antione Rodgers RN RN ll1
[2021-10-28] MEDS ORDERED: POTASSIUM CL SA 10 MEQ TAB PO ONE (13:26)
[2021-10-28 13:40] VITALS: BP 154/86; TEMP 98; O2SAT 100
== END 2021-10-28 13:34 | disposition home or self-care (01) ==
LOC: ER 10:35
DX: O20.0 Threatened abortion (principal)
CPT/HCPCS: 36415; 76817; 80048; 84702; 85025; 86900; 86901; 99284

== ENCOUNTER 2022-03-09 20:22 | Emergency (ER) | payer OTHER ==
--- OUTSIDE RECORDS SUMMARY | 2022-03-09 20:25 | XMS REPORT | Continuity of Care Document ---
:[address] [facility] t Address [address] [place] [address] Care Team Providers Name Role Phone Juju ERVINP, C Primary Care Physician Juju TOLEDO, C Attending Clinician Candace MORALES Attending Clinician Reji MICHAEL Attending Clinician Unavailable ESTEFANIA Attending Clinician Unavailable ESTEFANIA Attending Clinician Unavailable Trimester, Res-1st Attending Clinician Unavailable Bernard MORALES Attending Clinician BERNARD Attending Clinician Unavailable Gasper TORIBIO Attending Clinician Unavailable Lab Attending Clinician Unavailable ESTEFANIA Admitting Clinician Unavailable Payers Payer Name Policy Type Policy Number Effective Date Expiration Date S ource [place] [id number] 2021 2021 00:00:00 00:00:00 Advance Directives Directive Decision Effective Termination Comments Source Date Date Healthcare Agents on N/A NPI: [id number] FileNameRelationshipHealthcare [id number] Agent RelationshipCommunicationRaymond MalechaOtherHealth Care [phone] (Mobile) Problems Condition Condition Condition Status Onset Resolution Last Treating Co mments Source Name Details Category Date Date Treatment Clinician Date Disease Active NPI :183 of unknown of unknown 11-19 [id number] anatomic anatomic 00:00: location location 00 Chlamydia Chlamydia Disease Active 2020-11 Overview: NPI:183 infection, infection, 2-27 Formattin [id number] current current 00:00: g of this 00 note might be different from the original. Pending felton Supervisio Supervisio Disease Active 2020-11 N PI:183 n of n of 12-26 [id number] high-risk high-risk 00:00: 00 Multiparit Multiparit Disease Active 2020-11 N PI:183 y y 12-26 [id number] 00:00: 00 Over Over Disease Active 2020-11 NPI:183 weight weight 12-26 [id number] 00:00: 00 History of History of Disease Active 2020-11 Overview : NPI:183 12-26 Formattin 131 8781 section section 00:00: g of this 00 note might be different from the original. Due to abruption at 38.1 weeks see scanned records History of History of Disease Active 2020-11 Overview : NPI:183 placenta placenta 12-26 Formattin 131 8781 abruption abruption 00:00: g of this 00 note might be different from the original. 2017 delivery Nausea/vom Nausea/vom Disease Active 2020-11 N PI:183 iting in iting in 12-26 [id number] 1 00:00: 00 Allergies, Adverse Reactions, Alerts Allergy Allergy Status Severity Reaction(s) Onset Inactive Treating Comm ents Source Name Type Date Date Clinician NO KNOWN Drug Active NPI:183 ALLERGIE Class [id number] S Social History Social Habit Start Date Stop Date Quantity Comments Source ASSERTION 2021-09-30 00:00:00 Exposure to Not sure NPI:[id number] 1 SARS-CoV-2 (event) Alcohol intake 2021-11-12 2021-11-12 Ex-drinker NPI:[id number] 00:00:00 00:00:00 (finding) Tobacco use and 2021-10-25 2021-10-25 Never used NPI:[id number] 42318 exposure 00:00:00 00:00:00 History of tobacco 2021-10-23 Smoker NPI:18 [id number] use 00:00:00 Sex Ass[birth year] At [birth year] NPI:[id number] 00:00:00 00:00:00 Smoking Status Start Date Stop Date Source Former smoker 2021-10-25 00:00:00 2021-10-25 00:00:00 NPI:1831 [id number] Medications Ordered Filled Start Stop Current Ordering Indication Dosage Frequency Signature Comments Components Source Medication Medication Date Date Medication? Clinician (SIG) Name Name proMETHazin 2020-11 Yes [id number] 25mg Take 1 NPI:183 e 25 mg 2-23 tablet by [id number] tablet 00:00: mouth 00 every 6 (six) hours as needed for Nausea and Vomiting (N/V). proMETHazin 2020-11 Yes [id number] 25mg Take 1 NPI:183 e 25 mg 2-23 tablet by [id number] tablet 00:00: mouth 00 every 6 (six) hours as needed for Nausea and Vomiting (N/V). proMETHazin 2020-11 Yes [id number] 25mg Take 1 NPI:183 e 25 mg 2-23 tablet by [id number] tablet 00:00: mouth 00 every 6 (six) hours as needed for Nausea and Vomiting (N/V). proMETHazin 2020-11 Yes [id number] 25mg Take 1 NPI:183 e 25 mg 2-23 tablet by [id number] tablet 00:00: mouth 00 every 6 (six) hours as needed for Nausea and Vomiting (N/V). proMETHazin 2020-11 Yes [id number] 25mg Take 1 NPI:183 e 25 mg 2-23 tablet by [id number] tablet 00:00: mouth 00 every 6 (six) hours as needed for Nausea and Vomiting (N/V). proMETHazin 2020-11 Yes [id number] 25mg Take 1 NPI:183 e 25 mg 2-23 tablet by [id number] tablet 00:00: mouth 00 every 6 (six) hours as needed for Nausea and Vomiting (N/V). proMETHazin 2020-11 Yes [id number] 25mg Take 1 NPI:183 e 25 mg 2-23 tablet by [id number] tablet 00:00: mouth 00 every 6 (six) hours as needed for Nausea and Vomiting (N/V). proMETHazin 2020-11 Yes [id number] 25mg Take 1 NPI:183 e 25 mg 2-23 tablet by [id number] tablet 00:00: mouth 00 every 6 (six) hours as needed for Nausea and Vomiting (N/V). Immunizations Ordered Immunization Filled Immunization Date Status Commen ts Source Name Name Influenza Virus 2021-10-25 Completed NPI:[id number] Vaccine Quad IM, 00:00:00 Preserv and ABX Free 6 MO-64 YRS Influenza Virus 2021-10-25 Completed NPI:[id number] Vaccine Quad IM, 00:00:00 Preserv and ABX Free 6 MO-64 YRS Influenza Virus 2021-10-25 Completed NPI:[id number] Vaccine Quad IM, 00:00:00 Preserv and ABX Free 6 MO-64 YRS Influenza Virus 2021-10-25 Completed NPI:[id number] Vaccine Quad IM, 00:00:00 Preserv and ABX Free 6 MO-64 YRS Influenza Virus 2021-10-25 Completed NPI:[id number] Vaccine Quad IM, 00:00:00 Preserv and ABX Free 6 MO-64 YRS Influenza Virus 2021-10-25 Completed NPI:[id number] Vaccine Quad IM, 00:00:00 Preserv and ABX Free 6 MO-64 YRS Influenza Virus 2021-10-25 Completed NPI:[id number] Vaccine Quad IM, 00:00:00 Preserv and ABX Free 6 MO-64 YRS Influenza Virus 2021-10-25 Completed NPI:[id number] Vaccine Quad IM, 00:00:00 Preserv and ABX Free 6 MO-64 YRS Vital Signs Vital Name Observation Time Observation Value Comments Source Systolic blood pressure 2021-11-16 17:11:00 114 mm[Hg] Diastolic blood 2021-11-16 17:11:00 69 mm[Hg] NPI:1 [id number] pressure Heart rate 2021-11-16 17:11:00 81 /min NPI:183 [id number] Body temperature 2021-11-16 17:11:00 36.83 Denise Respiratory rate 2021-11-16 17:11:00 18 /min Body height 2021-11-16 17:11:00 149.9 cm NPI:[id number] Body weight 2021-11-16 17:11:00 63.231 kg NPI:183 [id number] BMI 2021-11-16 17:11:00 28.16 kg/m2 NPI:183 [id number] Procedures Procedure Date / Time Performed Performing Clinician Sourc e TOTAL BETA HCG ASSAY 2021-11-16 17:12:00 Sergey Lutz NPI:1 [id number] TOTAL BETA HCG ASSAY 2021-10-29 17:11:00 Marylu Michael TIP INSERTER [id number] Encounters Start End Encounter Admission Attending Care Care Encounter Source Date/Time Date/Time Type Type Clinicians Facility Department ID 2022-03-01 2022-03-01 Telephone Juju SDADY [id number] NPI:183 00:00:00 00:00:00 Marylu Mendoza [facility]TER [id number]686 MATERNAL [id number] & CHILD [address] [place] [address] 2021-12-13 2021-12-13 WINNIE Ferrari [id number] NPI:183 00:00:00 00:00:00 Management Pinky SAENZ [id number] [place] [id number] 2021-12-07 2021-12-07 JARON Borges [id number] NPI:183 00:00:00 00:00:00 (Out) Pinkyjohn DOS SANTOS 350.1.13.10 [id number] [place] [id number] 2021-12-06 2021-12-06 WINNIE Ferrari [id number] NPI:183 00:00:00 00:00:00 Management Pinky SAENZ 350.1.13.[id number] [place] [id number] 2021-11-29 2021-11-29 WINNIE Ferrari [id number] NPI:183 00:00:00 00:00:00 Management Pinky SAENZ 350.1.13.[id number] [place], [place] [id number] 2021-11-22 2021-11-22 Routine Juju [facility] [id number] NPI:183 08:00:00 08:15:00 Marylu C [employer] 350.1.13.10 [id number] Visit [facility] 4.2.7.2.686 MATERNAL [id number] & CHILD [address] [facility] 2021-11-22 2021-11-22 Outpatient R JUJU, [facility] [id number] NPI:183 08:00:00 08:00:00 MARYLU [id number] 2021-11-19 2021-11-19 Outpatient P ALONDRA MAC [facility] THERESE [id number] NPI:183 16:08:00 17:52:00 MACALONDRA [id number] 2021-11-16 Routine Trimester, [address] 1.2.840.114 [id number] NPI:183 11:00:00 12:10:56 Wagner, [facility] 350.1.13.10 [id number] Visit [place] [id number] 2021-11-16 2021-11-16 Outpatient R WAGNER, [facility] [id number] NPI:183 11:00:00 12:10:56 ART [id number] 2021-10-30 2021-10-30 Outpatient R MALU, [facility] [id number] NPI:183 10:30:00 11:27:26 ROSANGELA [id number] 2021-10-29 2021-10-29 [facility], [facility] 1.2.840. [id number] NPI:183 10:30:00 11:17:35 Visit Marylu Michael [employer] 350.1.13. 10 [id number] [facility] [id number] MATERNAL [id number] & CHILD 107 [facility] 2021-10-29 2021-10-29 Outpatient R JUJU, [facility] [id number] NPI:183 10:30:00 11:17:35 MARYLU [id number] 2021-10-25 2021-10-25 Outpatient R JUJU, [facility] [id number] NPI:183 13:30:00 14:55:22 MARYLU [id number] Results Test Description Test Time Test Comments Results Result Comments Source TOTAL BETA HCG ASSAY 2021-11-16 19:24:52 Test Item Value Reference Range Interpretation Comme nts BETA HCG (test code = See_Comment [Auto mated message] The [id number]) system which ge nerated this result transmit vee reference range : Non- fe male and male patients: <5 mIU/mL. The reference r mark was not used to interpr et this result as hal l/abnormal. JOSR (test code = JOSR) Gestational Age ?Range (mIU/mL) 1-10 ?Weeks ?[id number] Weeks ?[id number] Weeks ?[id number] Weeks ?[id number] Biotin has been reported to cause a negative bias, interpret results relative to patient's use of biotin. Gestational Age ?Range (mIU/mL) 1-10 ?Weeks ?[id number] Weeks ?[id number] Weeks ?4954-08940903-12 Weeks ?1531-364067 Biotin has been reported to cause a negative bias, interpret results relative to patient's use of biotin. NPI:[id number] BETA HCG [id number] 08:47:19 Test Item Value Reference Range Interpretation Comments BETA HCG (test See_Comment [Automated m essage] code = The system [facility] [id number]) generated this result transmit vee reference range : Non- fe male and male patien ts: <5 mIU/mL. The reference range was not used to interpret this result as normal/abnormal . JOSR (test code Gestational Age ? ? = JOSR) ?Range (mIU/mL) 1-10 ?Weeks ?[id number] Weeks ?[id number] Weeks ?[id number] Weeks ?3758-500137 Biotin has been reported to cause a negative bias, interpret results relative to patient's use of biotin.
[2022-03-09 21:06] LABS: Hematocrit 36.2 % (36.0-45.0); Lymphocytes % 35.7 % (15.3-44.8); MPV 7.7 fL (7.6-11.3); RBC Red Blood Cell Count 4.07 M/uL (3.86-4.86)
[2022-03-09 21:10] LABS: Protime INR 1.14
--- NOTE | 2022-03-09 21:15 | RAD REPORT ---
EXAM DESCRIPTION: RAD - Chest Single View - 03/09/2022 9:09 pm CLINICAL HISTORY: COUGH COMPARISON: <Comparisons> FINDINGS: Lines: None. Lungs: No evidence of edema or pneumonia. Pleural: No significant pleural effusions or pneumothorax. Cardiac: The heart size is within normal limits. Bones: No acute fractures. Other: IMPRESSION: No acute cardiopulmonary disease.
[2022-03-09] MEDS ORDERED: NA CHLORIDE 0.9% 1,000 ML ONE ×2 (21:24→22:28)
[2022-03-09] MEDS ORDERED: METHYLPREDNISOLONE 125 MG INJ ONE (21:24)
[2022-03-09] MEDS ORDERED: DIPHENHYDRAMINE 50 MG/ML VIAL ONE (21:24)
[2022-03-09] MEDS ORDERED: FAMOTIDINE 20 MG/2 ML VIAL IV ONE (21:24)
[2022-03-09 22:06] LABS: ALT/SGPT 17 U/L (12-78); AST/SGOT 11 U/L (15-37); Albumin 3.8 g/dL (3.4-5.0); Alkaline Phosphatase 55 U/L (45-117); BUN Blood Urea Nitrogen 4 mg/dL (7-18); Bicarbonate 18 mmol/L (21-32); Bilirubin Direct 0.1 mg/dL (0-0.2); Bilirubin Total 0.4 mg/dL (0.2-1.0); Creatine Phosphokinase 63 U/L (26-192); Glucose Level 94 mg/dL (74-106); Magnesium 1.6 mg/dL (1.8-2.4); Protein, Total 7.1 g/dL (6.4-8.2); Sodium Level 141 mmol/L (136-145)
[2022-03-09 22:09] LABS: NT PRO-BNP 41 pg/mL (<125); Troponin High Sensitivity 3.6 pg/mL (<58.9)
[2022-03-09 22:10] LABS: Potassium 2.6 mmol/L (3.5-5.1)
[2022-03-09] MEDS ORDERED: POTASSIUM 25 MEQ EFFERV TAB ONE (22:28)
[2022-03-09] MEDS ORDERED: KCL 20 MEQ/100 mL IVPB 100 ML IV ONE (22:28)
[2022-03-09] MEDS ORDERED: MAGNESIUM SULFATE 1 gm IVPB 0 GM/0 ML BAG IV ONE (23:17)
--- NOTE | 2022-03-09 23:43 | ER ---
Nurse's Notes [facility] Name: Ahsan Fitch Age: 21 yrs Sex: Female : 2000 Arrival Date: 03/09/2022 Time: 20:24 Bed 14 Private MD: Diagnosis: Presentation: 03/09 20:25 Chief complaint: EMS states: went on walking trails in a park and started getting bit sm5 by ants and started getting anxiety which triggered an asthma attack. pt took her albuterol inhaler prior to ems arrival. ems gave 0.5mg of ativan. Coronavirus screen: At this time, the client does not indicate any symptoms associated with coronavirus-19. Ebola Screen: No symptoms or risks identified at this time. Initial Sepsis Screen: Does the patient meet any 2 criteria? No. Patient's initial sepsis screen is negative. Does the patient have a suspected source of infection? No. Patient's initial sepsis screen is negative. Risk Assessment: Do you want to hurt yourself or someone else? Patient reports no desire to harm self or others. Onset of symptoms was March 09, 2022. 20:25 Method Of Arrival: EMS: [facility]5 20:25 Acuity: CLAIR 4 sm5 Triage Assessment: 20:28 General: Appears in no apparent distress. Behavior is anxious. Pain: Denies pain. sm5 Neuro: No deficits noted. Perkins Agitation-Sedation Scale (RASS): 0 - Alert and Calm Level of Consciousness is awake, alert, obeys commands, Oriented to person, place, time, situation. Cardiovascular: No deficits noted. Capillary refill < 3 seconds Patient's skin is warm and dry. Respiratory: Airway is patent Trachea midline Respiratory effort is even, labored. GI: No deficits noted. FISCAL ECONOMIST: 23:41 LMP 2021 sm5 Historical: - Allergies: 20:27 No Known Allergies; sm5 - Home Meds: 20:27 Tramadol Oral [Active]; sm5 - PMHx: 20:27 Asthma; sm5 - PSHx: 20:27 section; sm5 - Immunization history:: Adult Immunizations up to date. - Social history:: Smoking status: unknown. Screenin:29 Abuse screen: Denies threats or abuse. Denies injuries from another. Nutritional sm5 screening: No deficits noted. Tuberculosis screening: No symptoms or risk factors identified. Fall Risk None identified. Assessment: 20:30 Reassessment: see triage assessment. ld1 21:40 Reassessment: No changes from previously documented assessment. Patient and/or family ld1 updated on plan of care and expected duration. Pain level reassessed. 22:47 Reassessment: No changes from previously documented assessment. Patient and/or family ld1 updated on plan of care and expected duration. Pain level reassessed. Patient is alert, oriented x 3, equal unlabored respirations, skin warm/dry/pink. 23:38 Reassessment: pt requesting to speak to Dr. Oshea. pt stating she would like to leave. 5 Explained to pt about critical lab results and need for medication and further work up. Pt still stating she would like to leave. Dr Oshea at bedside. Pt signed AMA form and understood she can come back. Vital Signs: 20:25 BP 118 / 73; Pulse 97; Resp 20; Temp 99.1(O); Pulse Ox 100% on R/A; Weight 68.04 kg; 5 Height 5 ft. 0 in. (152.40 cm); 21:00 BP 122 / 81; Pulse 111; Resp 18; Pulse Ox 98% on R/A; 5 23:30 BP 119 / 76; Pulse 97; Resp 16; Pulse Ox 100% on R/A; 5 20:25 Body Mass Index 29.29 (68.04 kg, 152.40 cm) 5 ED Course: 20:24 Patient arrived in ED. mw2 20:25 Vipin Oshea MD is Attending Physician. mh7 20:25 Natalia Johnson, SHREYA is Primary Nurse. 5 20:27 Triage completed. 5 20:28 Arm band placed on right wrist. 5 20:28 Patient has correct armband on for positive identification. Bed in low position. Call [facility] light in reach. Side rails up X2. Client placed on continuous cardiac and pulse oximetry monitoring. NIBP monitoring applied. 21:10 XRAY Chest (1 view) In Process Unspecified. EDMS 21:33 Basic Metabolic Panel Sent. sm5 21:33 LFT's Sent. sm5 21:33 Magnesium Sent. sm5 21:33 NT PRO-BNP Sent. 5 21:33 Troponin HS Sent. sm5 22:40 Inserted saline lock: 20 gauge in right antecubital area, using aseptic technique. bb 23:41 No provider procedures requiring assistance completed. IV discontinued, intact, 5 bleeding controlled, No redness/swelling at site. Pressure dressing applied. Administered Medications: 21:32 Drug: SOLU-Medrol (methylPrednisoLONE) 125 mg Route: IVP; Site: right forearm; sm5 22:34 Follow up: Response: No adverse reaction 5 21:32 Drug: Pepcid (famotidine) 20 mg Route: IVP; Site: right forearm; sm5 22:34 Follow up: Response: No adverse reaction 5 21:32 Drug: Benadryl (diphenhydrAMINE) 50 mg Route: IVP; Site: right forearm; sm5 22:34 Follow up: Response: No adverse reaction [facility] 21:33 Drug: NS 0.9% 1000 ml Route: IV; Rate: 1000 ml; Site: right forearm; 5 22:51 Drug: Potassium Chloride 20 mEq Route: IV; Rate: per protocol; Site: right antecubital; bb 23:02 Drug: Potassium Effervescent Tablet 50 mEq Route: PO; ld1 23:37 Not Given (Patient Refused): Magnesium Sulfate 1 grams IVPB once over 1 hrs [facility] Outcome: 23:41 AMA AMA form signed [facility] 23:41 Condition: stable 23:41 Instructed on risks of leaving AMA and to come back if she develops chest pain, shortness of breath, or any other issues arise 23:43 Patient left the ED. 5 Signatures: Dispatcher [employer] EDMS Kristi Tom RN RN bb Katie Schaffer 2 Vipin Oshea MD MD [facility] Armida Byrnes RN RN ld1 Natalia Johnson RN RN 5
--- NOTE | 2022-03-09 23:43 | EDPHYS ---
Physician Documentation [facility] Name: Ahsan Fitch Age: 21 yrs Sex: Female : 2000 Arrival Date: 03/09/2022 Time: 20:24 Bed 14 Private MD: ED Physician Vipin Oshea HPI: 03/09 20:38 This 21 yrs old Female presents to ER via EMS with complaints of Shortness of mh7 Breath. 20:38 The patient has shortness of breath during heavy activity. Onset: The symptoms/episode mh7 began/occurred today. Duration: The symptoms are continuous, but are steadily getting better. The patient's shortness of breath is aggravated by coughing, exertion, is alleviated by nothing. Associated signs and symptoms: Pertinent positives: productive cough, Pertinent negatives: chest pain, non-productive cough, diaphoresis, dizziness, fever, hemoptysis, loss of consciousness, nausea, numbness in extremities, visual changes, vomiting. Severity of symptoms: At their worst the symptoms were moderate today, in the emergency department the symptoms have improved moderately. Patient reports going on a hike with friends today then started feeling SOB after about 30 minutes. She thought it may be her asthma and sat down. She states that ants starting biting her legs when she sat down and made things worse. . 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 - Social history:: Smoking status: unknown. ROS: 20:38 Constitutional: Negative for fever, chills, and weight loss, Eyes: Negative for injury, mh7 pain, redness, and discharge, ENT: Negative for injury, pain, and discharge, Neck: Negative for injury, pain, and swelling, Cardiovascular: Negative for chest pain, palpitations, and edema, Abdomen/GI: Negative for abdominal pain, nausea, vomiting, diarrhea, and constipation, Back: Negative for injury and pain, : Negative for injury, bleeding, discharge, and swelling, MS/Extremity: Negative for injury and deformity, Skin: Negative for injury, rash, and discoloration, Neuro: Negative for headache, weakness, numbness, tingling, and seizure, Psych: Negative for depression, anxiety, suicide ideation, homicidal ideation, and hallucinations, Endocrine: Negative for neck swelling, polydipsia, polyuria, polyphagia, and marked weight changes, Hematologic/Lymphatic: Negative for swollen nodes, abnormal bleeding, and unusual bruising. Exam: 20:38 Head/Face: Normocephalic, atraumatic. Eyes: Pupils equal round and reactive to light, mh7 extra-ocular motions intact. Lids and lashes normal. Conjunctiva and sclera are non-icteric and not injected. Cornea within normal limits. Periorbital areas with no swelling, redness, or edema. ENT: Nares patent. No nasal discharge, no septal abnormalities noted. Tympanic membranes are normal and external auditory canals are clear. Oropharynx with no redness, swelling, or masses, exudates, or evidence of obstruction, uvula midline. Mucous membranes moist. Neck: Trachea midline, no thyromegaly or masses palpated, and no cervical lymphadenopathy. Supple, full range of motion without nuchal rigidity, or vertebral point tenderness. No Meningismus. Chest/axilla: Normal chest wall appearance and motion. Nontender with no deformity. No lesions are appreciated. Cardiovascular: Regular rate and rhythm with a normal S1 and S2. No gallops, murmurs, or rubs. Normal PMI, no JVD. No pulse deficits. Respiratory: Lungs have equal breath sounds bilaterally, clear to auscultation and percussion. No rales, rhonchi or wheezes noted. No increased work of breathing, no retractions or nasal flaring. Abdomen/GI: Soft, non-tender, with normal bowel sounds. No distension or tympany. No guarding or rebound. No evidence of tenderness throughout. Back: No spinal tenderness. No costovertebral tenderness. Full range of motion. MS/ Extremity: Pulses equal, no cyanosis. Neurovascular intact. Full, normal range of motion. Neuro: Awake and alert, GCS 15, oriented to person, place, time, and situation. Cranial nerves II-XII grossly intact. Motor strength 5/5 in all extremities. Sensory grossly intact. Cerebellar exam normal. Normal gait. Psych: Awake, alert, with orientation to person, place and time. Behavior, mood, and affect are within normal limits. 20:38 Constitutional: The patient appears in no acute distress, alert, awake, anxious. Vital Signs: 20:25 BP 118 / 73; Pulse 97; Resp 20; Temp 99.1(O); Pulse Ox 100% on R/A; Weight 68.04 kg; 5 Height 5 ft. 0 in. (152.40 cm); 21:00 BP 122 / 81; Pulse 111; Resp 18; Pulse Ox 98% on R/A; sm5 23:30 BP 119 / 76; Pulse 97; Resp 16; Pulse Ox 100% on R/A; sm5 20:25 Body Mass Index 29.29 (68.04 kg, 152.40 cm) [facility] MDM: 23:38 Differential diagnosis: Anemia Anxiety Reaction asthma, Bronchitis pneumonia, mh7 Pneumothorax Psychogenic pulmonary edema, Pulmonary Embolism reactive airway disease, Allergic reaction. Data reviewed: vital signs, nurses notes, EMS record, lab test result(s), cardiac enzymes, CBC, electrolytes, urinalysis, EKG, radiologic studies, plain films. Data interpreted: Pulse oximetry: on room air is 100 %. Interpretation: normal. Counseling: I had a detailed discussion with the patient and/or guardian regarding: the historical points, exam findings, and any diagnostic results supporting the discharge/admit diagnosis, lab results, radiology results. Response to treatment: the patient's symptoms have markedly improved after treatment. Refusal of service: The patient/guardian displays adequate decision making capability and despite a detailed discussion of alternatives, benefits, risks, and consequences refuses: CT Scan, Medications. ED course: NAD, VSS, no focal neurological deficits, AA \T\ O x 3. Discussed test results and findings with the patient and need for CT chest to evaluate for possible PE. She was agreeable to studies but later declined and wanted to leave against medical advice. Explained the possibility of permanent disability and/or if serious medical condition is present and goes untreated or undetected. She verbalized that she understood this information as presented. She knows that she can return to the ED if she has any concerns.. 03/10 19:51 Patient medically screened. [facility] 03/09 20:36 Order name: Basic Metabolic Panel; Complete Time: 22:20 [facility] 03/09 20:36 Order name: CBC with Diff; Complete Time: 21:27 [facility] 03/09 20:36 Order name: LFT's; Complete Time: 22:20 [facility] 03/09 20:36 Order name: Magnesium; Complete Time: 22:20 [facility] 03/09 20:36 Order name: NT PRO-BNP; Complete Time: 22:20 [facility] 03/09 20:36 Order name: PT-INR; Complete Time: 21:27 [facility] 03/09 20:36 Order name: Troponin HS; Complete Time: 22:20 [facility] 03/09 20:36 Order name: XRAY Chest (1 view); Complete Time: 21:27 [facility] 03/09 20:36 Order name: CPK; Complete Time: 22:20 [facility] 03/09 21:42 Order name: D-Dimer; Complete Time: 22:20 [facility] 03/09 20:36 Order name: EKG; Complete Time: 20:38 [facility] 03/09 20:36 Order name: Cardiac monitoring; Complete Time: 21:33 [facility] 03/09 20:36 Order name: EKG - Nurse/Tech; Complete Time: 21:33 [facility] 03/09 20:36 Order name: IV Saline Lock; Complete Time: 21:33 [facility] 03/09 20:36 Order name: Labs collected and sent; Complete Time: 21:33 [facility] 03/09 20:36 Order name: O2 Per Protocol; Complete Time: 21:33 [facility] 03/09 20:36 Order name: O2 Sat Monitoring; Complete Time: 21:33 [facility] 03/09 20:36 Order name: Urine Dipstick-Ancillary (obtain specimen) [facility] 03/09 20:36 Order name: Urine Test (obtain specimen) [facility] Administered Medications: 03/09 21:32 Drug: SOLU-Medrol (methylPrednisoLONE) 125 mg Route: IVP; Site: right forearm; sm5 22:34 Follow up: Response: No adverse reaction sm5 21:32 Drug: Pepcid (famotidine) 20 mg Route: IVP; Site: right forearm; sm5 22:34 Follow up: Response: No adverse reaction sm5 21:32 Drug: Benadryl (diphenhydrAMINE) 50 mg Route: IVP; Site: right forearm; sm5 22:34 Follow up: Response: No adverse reaction sm5 21:33 Drug: NS 0.9% 1000 ml Route: IV; Rate: 1000 ml; Site: right forearm; sm5 22:51 Drug: Potassium Chloride 20 mEq Route: IV; Rate: per protocol; Site: right antecubital; bb 23:02 Drug: Potassium Effervescent Tablet 50 mEq Route: PO; ld1 23:37 Not Given (Patient Refused): Magnesium Sulfate 1 grams IVPB once over 1 hrs sm5 Disposition Summary: 03/09/22 23:43 Left Against Medical Advice Location: Home [facility] Condition: Stable [facility] Discharge Instructions: - Discharge Summary Sheet 7 - Hypomagnesemia 7 - Shortness of Breath, Adult, Latn-io-Hdan 7 - Hypokalemia 7 Signatures: Dispatcher [employer] Kristi Jackson RN RN bb Vipin Oshea MD MD 7 Armida Byrnes RN RN 1 Natalia Johnson RN RN 5 Corrections: (The following items were deleted from the chart) 23:37 22:23 Chest For PE Angio+[id number].[id number] ordered. EDMS EDMS
[2022-03-09 23:56] VITALS: TEMP 99.1
[2022-03-09 23:59] VITALS: BP 119/76; O2SAT 100
--- NOTE | 2022-03-11 08:59 | EKG ---
Test Date: 2022-03-09 Test Time: 21:32:23 [employer] Ad[employer] Developer: RADHA MEASUREMENT RESULTS: Intervals: Rate: 98 WY: 130 QRSD: 86 QT: 330 QTc: 421 Dobbins: P: 75 WY: 130 QRS: 78 T: 30 INTERPRETIVE STATEMENTS: Normal sinus rhythm Nonspecific T wave abnormality Abnormal ECG No previous ECG available for comparison Electronically Signed On 03-11-22 08:56:50 CDT by Malick Au
== END 2022-03-09 23:43 | disposition left against medical advice (07) ==
LOC: ER 20:22
DX: E83.42 Hypomagnesemia (principal); E87.6 Hypokalemia; J45.909 Unspecified asthma, uncomplicated
CPT/HCPCS: 93005; 85025; 80048; 36415; 83735; 82550; 85610; 85379; 80076; 84484; 83880; 71045; 99284; J1200; J3480; J7030 ×2; J2930; J3490; J3475